=== PATIENT | male | born 1955 | race Caucasian/White ===

== ENCOUNTER → 2018-10-30 13:08 | Outpatient (CLI) | payer MEDICARE, BC, SELFPAY ==
[2018-10-30 13:49] LABS: Basophils % 0.2 % (0.1-2.0); Eosinophils # 0.1 K/mm3 (0.0-0.4); Eosinophils % 2.2 % (0.1-12.0); Hematocrit 45.5 % (42.0-52.0); Hemoglobin 15.4 g/dL (14.1-18.0); Lymphocytes # 1.5 K/mm3 (0.7-4.5); Lymphocytes % 26.4 % (10-50); Mean Corpuscular HGB Conc 33.7 g/dL (31.8-35.4); Mean Corpuscular Hemoglobin 29.2 pg (27.0-31.2); Mean Corpuscular Volume 86.5 fl (80-94); Mean Platelet Volume 8.6 fl (7.4-10.4); Monocytes # 0.6 K/mm3 (0.1-1.0); Monocytes % 9.5 % (1.7-9.3); Neutrophils # 3.6 K/mm3 (1.8-7.8); Neutrophils % 61.7 % (37.0-80.0); Platelet Count 173 K/mm3 (142-424); Red Blood Count 5.26 M/mm3 (4.60-6.20); Red Cell Distribution Width 15.5 % (11.5-17.5); White Blood Count 5.8 K/mm3 (4.8-10.8)
== END ==
PROVIDERS: Visit Provider Internal Medicine
DX: D75.1 Secondary polycythemia (principal)
CPT/HCPCS: 36415; 85025

== ENCOUNTER → 2018-11-27 13:50 | Outpatient (CLI) | payer MEDICARE, BC, SELFPAY ==
--- NOTE | 2018-11-27 13:56 | XR_ITS ---
XR hip RT 2-3V w/pelvis HISTORY: ITS.REASON: RT HIP PAIN ORDERING PHYSICIAN: Luz Martinez APRN PATIENT AGE: 63 years COMPARISON: None FINDINGS: No fracture or dislocation is evident. There are mild osteoarthritic changes of the right hip with slight decrease in the joint space, osteosclerosis of the acetabular roof, and small osteophyte formation of the acetabulum. IMPRESSION: Mild osteoarthritis of the right hip
== END ==
PROVIDERS: PCP Nurse Practitioner Family; Visit Provider Nurse Practitioner Family
DX: M25.551 Pain in right hip (principal)
CPT/HCPCS: 73502

== ENCOUNTER → 2019-04-01 15:35 | Outpatient (CLI) | payer MEDICARE, BC, SELFPAY ==
--- NOTE | 2019-04-01 15:41 | XR_ITS ---
PROCEDURE: XR CHEST 2V CLINICAL HISTORY: sob COMPARISON: CXR CHEST(2 VIEWS-NOT PORTABLE) from 09/01/2015 FINDINGS: The cardiomediastinal silhouette and pulmonary vascularity are within normal limits. The lungs are clear without infiltrates, suspicious nodules, or pleural effusions. No acute bony abnormalities. IMPRESSION: No acute findings. Dictated by: Brant William MD 04/01/2019 16:00 Electronically signed by Brant William MD in [place] 04/01/2019 16:00
[2019-04-01 16:43] LABS: Troponin I < 0.02 ng/ml (0.00-0.06)
[2019-04-01 16:44] LABS: Basophils % 0.4 % (0.1-2.0); Eosinophils # 0.1 K/mm3 (0.0-0.4); Eosinophils % 1.5 % (0.1-12.0); Hemoglobin 17.1 g/dL (14.1-18.0); Lymphocytes # 1.1 K/mm3 (0.7-4.5); Lymphocytes % 14.9 % (10-50); Mean Corpuscular HGB Conc 34.9 g/dL (31.8-35.4); Mean Corpuscular Hemoglobin 33.2 pg (27.0-31.2); Mean Platelet Volume 8.6 fl (7.4-10.4); Monocytes # 0.7 K/mm3 (0.1-1.0); Monocytes % 9.5 % (1.7-9.3); Neutrophils # 5.6 K/mm3 (1.8-7.8); Neutrophils % 73.7 % (37.0-80.0); Platelet Count 191 K/mm3 (142-424); Red Blood Count 5.16 M/mm3 (4.60-6.20); Red Cell Distribution Width 14.2 % (11.5-17.5); White Blood Count 7.6 K/mm3 (4.8-10.8)
[2019-04-01 16:50] LABS: Alanine Aminotransferase 27 U/L (12-78); Albumin Level 3.7 gm/dL (3.4-5.0); Alkaline Phosphatase 81 U/L (46-116); Anion Gap 12.9 mEq/L (5-15); Aspartate Amino Transferase 23 U/L (15-37); Bilirubin,Direct 0.1 mg/dL (0.0-0.2); Bilirubin,Indirect 0.6 mg/dL (0.0-0.9); Bilirubin,Total 0.7 mg/dL (0.2-1.0); Blood Urea Nitrogen 16 mg/dL (7-18); Calcium 9.4 mg/dL (8.5-10.1); Carbon Dioxide 27 mmol/L (21.0-32.0); Chloride 102 mmol/L (98-107); Creatinine,Serum 0.76 mg/dL (0.70-1.30); Estimated Glomerular Filt Rate 103 ml/min (>60); GFR (African American) 125 ML/MIN (>60); Glucose 104 mg/dL (74-106); Potassium 3.9 mmoL/L (3.5-5.1); Sodium 138 mmol/L (136-145); Thyroid Stimulating Hormone 3.42 uIU/ml (0.358-3.740); Total Protein,Serum 7.1 gm/dL (6.4-8.2)
== END ==
PROVIDERS: PCP Family Medicine; Visit Provider Nurse Practitioner Family
DX: I48.91 Unspecified atrial fibrillation (principal); R00.2 Palpitations; I11.9 Hypertensive heart disease without heart failure; R06.02 Shortness of breath; E78.5 Hyperlipidemia, unspecified; R07.9 Chest pain, unspecified
CPT/HCPCS: 36415; 71046; 80048; 80076; 84439; 84443; 84484; 85025; 93270

== ENCOUNTER → 2019-06-26 11:37 | Outpatient (CLI) | payer MEDICARE, BC, SELFPAY ==
[2019-06-26 12:21] LABS: Basophils % 0.4 % (0.1-2.0); Eosinophils # 0.1 K/mm3 (0.0-0.4); Eosinophils % 1.8 % (0.1-12.0); Hematocrit 49.8 % (42.0-52.0); Lymphocytes # 1.4 K/mm3 (0.7-4.5); Lymphocytes % 23.6 % (10-50); Mean Corpuscular HGB Conc 34.1 g/dL (31.8-35.4); Mean Corpuscular Hemoglobin 33.2 pg (27.0-31.2); Mean Corpuscular Volume 97.2 fl (80-94); Mean Platelet Volume 8.7 fl (7.4-10.4); Monocytes # 0.6 K/mm3 (0.1-1.0); Monocytes % 10.5 % (1.7-9.3); Neutrophils # 3.8 K/mm3 (1.8-7.8); Neutrophils % 63.7 % (37.0-80.0); Platelet Count 186 K/mm3 (142-424); Red Blood Count 5.12 M/mm3 (4.60-6.20); Red Cell Distribution Width 13.3 % (11.5-17.5)
[2019-06-26 12:46] LABS: Alanine Aminotransferase 30 U/L (12-78); Albumin Level 3.6 gm/dL (3.4-5.0); Alkaline Phosphatase 87 U/L (46-116); Anion Gap 12.8 mEq/L (5-15); Aspartate Amino Transferase 21 U/L (15-37); Bilirubin,Direct 0.1 mg/dL (0.0-0.2); Bilirubin,Indirect 0.7 mg/dL (0.0-0.9); Bilirubin,Total 0.8 mg/dL (0.2-1.0); Blood Urea Nitrogen 19 mg/dL (7-18); Calcium 9.6 mg/dL (8.5-10.1); Carbon Dioxide 31 mmol/L (21.0-32.0); Chloride 101 mmol/L (98-107); Chol/HDL Ratio 3.2 (1-3.5); Cholesterol 126 mg/dL (140-200); Creatinine,Serum 0.86 mg/dL (0.70-1.30); Estimated Glomerular Filt Rate 89 ml/min (>60); GFR (African American) 108 ML/MIN (>60); Glucose 103 mg/dL (74-106); HDL Cholesterol 40 mg/dL (27-67); LDL Cholesterol 62 mg/dL (0-130); Potassium 4.8 mmoL/L (3.5-5.1); Sodium 140 mmol/L (136-145); Total Protein,Serum 6.8 gm/dL (6.4-8.2); Triglycerides 121 mg/dL (30-200); VLDL Cholesterol 24 mg/dL (0-40)
== END ==
PROVIDERS: Visit Provider Physician Assistant
DX: E78.5 Hyperlipidemia, unspecified (principal); I11.9 Hypertensive heart disease without heart failure; I48.0 Paroxysmal atrial fibrillation
CPT/HCPCS: 36415; 80048; 80061; 80076; 85025

== ENCOUNTER → 2020-12-08 14:18 | Outpatient (CLI) | payer MEDICARE, BC, SELFPAY ==
--- NOTE | 2020-12-08 | XR_ITS ---
PROCEDURE: XR KNEE LT 3V CLINICAL INDICATION: PAIN IN LT KNEE COMPARISON: No exams were available for comparison FINDINGS: Severe tricompartmental osteoarthritic changes are present with decrease in joint space and osteophyte formation. Is some mild concave flattening of the medial tibial plateau and prominent osteophyte is present along the distal femur at the patellofemoral joint. There is lateral tibial subluxation 1 cm. No fracture or dislocation. No lytic or blastic change. IMPRESSION: Severe osteoarthritis involving all 3 compartments. There is concave deformity of the medial tibial plateau raising the suspicion of an old tibial plateau fracture. Dictated by: Brant William MD 12/08/2020 15:22 Brant William MD in [place] 12/08/2020 15:22
--- NOTE | 2020-12-08 | XR_ITS ---
PROCEDURE: XR KNEE RT 3V CLINICAL INDICATION: PAIN IN RT KNEE COMPARISON: No exams were available for comparison FINDINGS: There are mild tricompartmental osteoarthritic changes greatest at the medial compartment with slight decrease in the joint spaces and osteophyte formation. No fracture or dislocation. No lytic or blastic change. Other findings:There is minimal lateral subluxation of the tibia by approximately 4 mm. IMPRESSION: Mild osteoarthritis of the right knee Dictated by: Brant William MD 12/08/2020 15:17 Brant William MD in [place] 12/08/2020 15:17
--- NOTE | 2020-12-08 | XR_ITS ---
PROCEDURE: XR HIP RT 2-3V W/PELVIS CLINICAL INDICATION: RT HIP PAIN COMPARISON: No exams were available for comparison FINDINGS: There are severe osteoarthritic changes of the right hip with loss of joint space superiorly and osteosclerosis is well osteophyte formation. There is mild lateral subluxation of the femoral head and widening of the hip joint space. Osteophytes are present at the femoral head/neck junction and could be causing some femoral acetabular impingement. Subchondral cystic changes are present in the acetabulum and femoral head. No acute fracture or dislocation. There is very minimal flattening of the femoral head IMPRESSION: Severe osteoarthritis of the right hip as detailed above with subchondral cystic changes of the acetabulum and femoral head. Dictated by: Brant William MD 12/08/2020 15:16 Brant William MD in [place] 12/08/2020 15:16
== END ==
PROVIDERS: PCP Nurse Practitioner Family; Visit Provider Nurse Practitioner Family
DX: M25.562 Pain in left knee (principal); M25.561 Pain in right knee; M25.551 Pain in right hip
CPT/HCPCS: 73502; 73562

== ENCOUNTER → 2020-12-23 11:37 | Outpatient (CLI) | payer MEDICARE, BC, SELFPAY ==
--- NOTE | 2020-12-23 | CA_ITS ---
APPROVED REPORT Exam: Pharmacologic Technologist: gloria perez, Ht: 5 ft 8 in Wt: 221 lbs BSA: 2.13 m2 HR: 52 bpm BP: 125/66 mmHg Indications: SOA Medical History Medications: Lisinopril,,,,, Sotalol,,,,, Naproxen,,,,, Lipitor,,,,, Diclofenac,,,,, RIvaROXABAN,,,,, Allergies: NKA Cardiac Risk Factors: HTN, Hyperlipidemia Stress Test Details Test: LEXISCAN HR Resting HR: 55 bpm Max Heart Rate (APMHR): 153.574678 bpm Max HR Achieved: 72 bpm Target HR (85% APMHR): 130.331594 bpm % of APMHR: 47.06 Recovery HR: 65 bpm BP Resting BP: 125/66 mmHg Max BP: 130/76 mmHg Recovery BP: 112.0/68.0 mmHg ECG Resting ECG: Sinus rocael, 1AVB Clinical Exercise duration: 04:00 min Highest Stage Achieved: Exercise capacity: 1.0 METs Stress ECG Conclusion Mild chest tightness amd mild lightheaded. Rarre PVC. No significant ST changes. Unremarkable Lexiscan stress. Images reported separately. Electronically signed by : Maicol Monique, 12/24/2020 10:22:17
--- NOTE | 2020-12-23 11:38 | NM_ITS ---
APPROVED REPORT Exam: Nuclear Stress Test Indication: HTN, HYPERLIPIDEMIA, FM HX, SOB, PALPITATIONS, A -FIB Patient Location: Outpatient Stress Tech: Mari Neri ID Tech:DAVID Benitez RT (R)(N)(M) Ht: 5 ft 8 in Wt: 214 lbs HR: 52 bpm BP: 125/66 mmHg BSA: 2.10 m2 BMI: 32.5 History: HTN, HYPERLIPIDEMIA, FM HX, SOB, PALPITATIONS, A -FI Procedure: Patient received a 0.4 mg of intravenous Lexiscan, resting heart rate 52 bpm, resting blood pressure 125/66 mmHg, with Lexiscan maximum heart rate achived was 71 bpm which is Less than 85 % of the maximum predicted heart rate and blood pressure was 107/57 mmHg. With Lexiscan, patient denied any complaint of chest pain. Electrocardiogram Resting electrocardiogram shows sinus rhythm, with Lexiscan there is less than 1.[address] segment depression noted from the baseline EKG. The EKG portion of the Lexiscan is nondiagnostic. Cardiac Stress and Resting SPECT Images: Cardiac Stress and Resting SPECT images were obtained using technetium 99m Myoview 31.2 mCi stress and 10.04 mCi at rest. Gated SPECT for analysis of segmental wall motion and calculation of the ejection fraction also done. Prone images were also obtained. Cardiac stress and resting SPECT images show decreased tracer activity in the anterior apical and inferior apical wall which improves on the resting images raising the concerns for presence of reversible ischemia, computer derived ejection fraction is 62% with no regional wall motion abnormality, right ventricle is normal size and contractility. This study is technically limited due to patient's body habitus. Conclusion: 1. The EKG portion of the Lexiscan is nondiagnostic. 2. Scintigraphic evidence of reversible ischemia involving the anterior apical, and inferior apical wall raising the concerns for presence of multivessel coronary artery disease, this study is technically limited due to patient's body habitus, computer derived ejection fraction is 62% with no regional wall motion abnormality, right ventricle is normal size and contractility. 3. Abnormal Lexiscan Myoview study. Electronically signed by : Maicol Monique, 12/24/2020 10:34:23
--- NOTE | 2020-12-23 13:32 | CA_ITS ---
APPROVED REPORT EXAM: Comprehensive 2D, Doppler, and color-flow Echocardiogram Museum Archivist: Desi Fish CRT Ht: 5 ft 8 in Wt: 221lbs BSA: 2.13 BP: 132/68 mmHg Indications: Shortness of Breath, Atrial Fibrillation, Palpitations, Hyperlipidemia, Hypertension/HDD 2D Dimensions LVOT 2.05 cm (M/F) 1.5-2.5 LA Volume 69.90 mL LA Volume Index 32.80 mL/m2 (M/F) 16-34 M-Mode Dimensions RVDd 2.28 cm (0.9-2.6) LA Diam 4.32 cm (1.9-4.0) LVDd 4.06 cm (3.5-5.7) Ao Diam 4.20 cm (2.0-3.7) LVDs 2.70 cm (3.5-5.7) IVSd 2.39 cm (0.6-1.1) PWd 0.76 cm (0.6-1.1) EF (Teich) 62.80% FS 33.50% EDV (Teich) 72.50 mL TAPSE 2.47 (<1.7) ESV (Teich) 27.00 mL LV Diastology E Decel Time 180.00 (160-240 msec) E/A Ratio 0.80 MED E' 6.40 (< 7 cm/sec) MED A' 10.40 cm/s E'/MED E' Ratio 13.02 (>14) LAT E' 10.20 (<10 cm/sec) LAT A' 10.40 cm/s E/LAT E' Ratio 8.17 (>14) Aortic Valve AO Peak GR. 6.80 mmHg Mitral Valve MV A Velocity 104.00 (40-130 cm/s) E/A Ratio 0.80 MV Decel. Time 180.00 (160-240 ms) Pulmonary Valve PV Peak Velocity 92.00 (50-150 cm/s) Tricuspid Valve TR P. Velocity 209.00 cm/s RAP Estimate 10.00 mmHg RVSP 27.40 mmHg Left Ventricle Left atrium is mildly enlarged, left ventricle is normal size, mild concentric left ventricular hypertrophy, visually estimated ejection fraction 55% with no regional wall motion abnormality, grade 1 diastolic dysfunction seen without tissue Doppler evidence of raise left atrial pressure. Right Ventricle Right atrium and right ventricle are normal size and contractility. Aortic Valve Aortic valve is minimally thickened and fibrosed, there is no aortic stenosis or aortic insufficiency. Mitral Valve Mitral valve grossly normal, there is trace mitral regurgitation. Tricuspid Valve Tricuspid valve grossly normal, there is trace tricuspid regurgitation, tricuspid regurgitation jet velocity is inadequate for calculation of the right ventricular systolic pressure. Pulmonic Valve Pulmonic valve is poorly visualized. Great Vessels Aortic root is normal size. Pericardium No significant pericardial effusion noted. Conclusion 1. Mildly enlarged left atrium, normal left ventricular size, mild concentric left ventricular hypertrophy, visually estimated ejection fraction 55% with no regional wall motion abnormality, grade 1 diastolic dysfunction seen without tissue Doppler evidence of raise left atrial pressure. 2. Trace mitral and tricuspid regurgitation. 3. No significant pericardial effusion noted. Electronically signed by : Maicol Monique, 12/24/2020 15:28:48
[2020-12-23 16:02] LABS: Alanine Aminotransferase 19 U/L (12-78); Alkaline Phosphatase 84 U/L (38-126); Anion Gap 7.4 mEq/L (5-15); Aspartate Amino Transferase 25 U/L (17-59); Bilirubin,Direct 0.2 mg/dl (0.0-0.4); Bilirubin,Indirect 0.6 mg/dL (0.0-0.9); Bilirubin,Total 0.8 mg/dl (0.2-1.3); Bilirubin,Unconjugated 0.5 mg/dL (0.0-1.1); Blood Urea Nitrogen 16 mg/dl (9-20); Calcium 9.4 mg/dl (8.4-10.2); Carbon Dioxide 33 mmol/L (22.0-30.0); Chloride 104 mmol/L (98-107); Chol/HDL Ratio 3.9 (1-3.5); Cholesterol 121 mg/dl (140-200); Estimated Glomerular Filt Rate 134 ml/min (>60); GFR (African American) 163 ML/MIN (>60); Glucose 93 mg/dl (74-100); HDL Cholesterol 31 mg/dl (40-60); Potassium 4.4 mmoL/L (3.5-5.1); Sodium 140 mmol/L (136-145); Total Protein,Serum 6.4 g/dl (6.3-8.2); Triglycerides 129 mg/dl (30-150); VLDL Cholesterol 26 mg/dL (0-40)
[2020-12-23 16:13] LABS: Direct LDL Cholesterol 63.23 mg/dL (100-129)
[2020-12-23 16:18] LABS: Free T4 (Free Thyroxine) 0.97 ng/dl (0.78-2.19)
[2020-12-23 16:33] LABS: Thyroid Stimulating Hormone 3.06 uIU/mL (0.465-4.68)
[2020-12-23 20:58] LABS: Basophils % 0.5 % (0.1-2.0); Eosinophils # 0.2 K/mm3 (0.0-0.4); Eosinophils % 2.4 % (0.1-12.0); Hematocrit 46.6 % (42.0-52.0); Hemoglobin 15.4 g/dL (14.1-18.0); Lymphocytes # 1.6 K/mm3 (0.7-4.5); Lymphocytes % 22.2 % (10-50); Mean Corpuscular HGB Conc 33.2 g/dL (31.8-35.4); Mean Corpuscular Hemoglobin 31.7 pg (27.0-31.2); Mean Corpuscular Volume 95.7 fl (80-94); Mean Platelet Volume 9.8 fl (7.4-10.4); Monocytes # 0.6 K/mm3 (0.1-1.0); Monocytes % 8.3 % (1.7-9.3); Neutrophils # 4.7 K/mm3 (1.8-7.8); Neutrophils % 66.6 % (37.0-80.0); Platelet Count 193 K/mm3 (142-424); Red Blood Count 4.87 M/mm3 (4.60-6.20); Red Cell Distribution Width 13.3 % (11.5-17.5); White Blood Count 7.1 K/mm3 (4.8-10.8)
== END ==
PROVIDERS: PCP Nurse Practitioner Family; Visit Provider Physician Assistant
DX: D75.1 Secondary polycythemia (principal); E78.2 Mixed hyperlipidemia; I11.9 Hypertensive heart disease without heart failure; I48.0 Paroxysmal atrial fibrillation; R00.2 Palpitations; R06.02 Shortness of breath
CPT/HCPCS: 36415; 78452; 80048; 80061; 80076; 84439; 84443; 85025; 93017; 93306; A9502; J2785

== ENCOUNTER → 2020-12-23 14:58 | Outpatient (CLI) | payer MEDICARE, BC, SELFPAY | PROVIDERS: Visit Provider Physician Assistant | DX: R06.02 Shortness of breath (principal) ==

== ENCOUNTER → 2020-12-31 14:14 | Outpatient (CLI) | payer MEDICARE, BC, SELFPAY | PROVIDERS: Visit Provider Physician Assistant | DX: D75.1 Secondary polycythemia (principal); E78.2 Mixed hyperlipidemia; I11.9 Hypertensive heart disease without heart failure; I48.0 Paroxysmal atrial fibrillation; R06.02 Shortness of breath; R94.30 Abnormal result of cardiovascular function study, unspecified; Z01.812 Encounter for preprocedural laboratory examination; Z20.822 Contact with and (suspected) exposure to COVID-19 | CPT/HCPCS: U0003 ==

== ENCOUNTER 2021-01-01 11:31 | Day surgery (SDC) | payer MEDICARE, BC, SELFPAY ==
[2021-01-01] VITALS (8 sets, daily range): BP systolic 104–119; BP diastolic 54–70; PULSE 47–54; RESP 13–20; O2SAT 95–99; BMI 32.6
--- NOTE | 2021-01-01 | IR_ITS ---
APPROVED REPORT Patient Location: Outpatient PROCEDURES Left heart catheterization Left ventriculogram Selective coronary angiogram INDICATION Abnormal Myoview, Angina pectoris Informed consent was obtained prior to the procedure. COMPLICATIONS None Estimated Blood Loss: Less than 10 mls TECHNIQUE One percent lidocaine used to anesthetize the right anterior aspect of the wrist. The right radial artery was accessed via the Seldinger technique. A 6 Czech sheath was placed in the right radial artery. 2.5 mg of verapamil, 800 mcg of nitroglycerin, 1mg Lidocaine and 5000 U Heparin were given through the arterial sheath. The trap catheter was also used to perform left heart catheterization, left ventriculogram and selective coronary angiogram. At the end of the procedure the sheath was removed good hemostasis was achieved using Traclet band, patient was transferred to the postop holding area in stable condition. ANGIOGRAPHIC RESULTS The left main artery Normal The left anterior descending artery Has extraluminal calcification seen on fluoroscopy however there is no intraluminal encroachment of either calcium or atherosclerotic disease The circumflex artery Dominant normal The right coronary artery Vestigial normal The THOMAS ventriculogram reveals Normal 65% The left ventricular end-diastolic pressure 10 mmHg IMPRESSION Extravascular calcification as described above which is seen on fluoroscopy No evidence of intraluminal atherosclerosis or calcification with essentially normal intraluminal angiography Normal ejection fraction Normal left ventricular end-diastolic pressure PLAN 1. Medical management evaluation of noncardiac symptoms Electronically signed by : Ezekiel Forrest, 01/01/2021 13:12:58
== END 2021-01-01 15:30 | disposition home or self-care (01) ==
LOC: CATHLAB 11:34
PROVIDERS: PCP Nurse Practitioner Family; Visit Provider Internal Medicine
DX: I25.118 Atherosclerotic heart disease of native coronary artery with other forms of angina pectoris (principal); R94.39 Abnormal result of other cardiovascular function study; R06.02 Shortness of breath; I48.0 Paroxysmal atrial fibrillation; I11.9 Hypertensive heart disease without heart failure; E78.2 Mixed hyperlipidemia; Z79.899 Other long term (current) drug therapy; D75.1 Secondary polycythemia; Z79.01 Long term (current) use of anticoagulants
CPT/HCPCS: 93458; 99152; C1725; C1769; J1644; Q9967

== ENCOUNTER → 2021-01-26 13:02 | Outpatient (CLI) | payer MEDICARE, BC, SELFPAY ==
--- NOTE | 2021-01-26 13:09 | XR_ITS ---
PROCEDURE: XR KNEE LT 4V CLINICAL INDICATION: left knee pain; weightbearing COMPARISON: CR XR KNEE LT 3V from 12/08/2020 CR XR KNEE RT 3V from 12/08/2020 FINDINGS: No fracture or dislocation. No lytic or blastic change. There is normal mineralization. Severe osteoarthritic changes are present involving all 3 compartments. These are upright images in the loss of joint space is greater compared to 12/08/2020. There is also moderate lateral subluxation of the proximal tibia approximately 15 mm. Small suprapatellar effusion is suspected. Calcification is noted along the anterior and distal aspect of the thigh within the soft tissues measuring approximately 7 x 4 mm. This probably represents a small loose body within the suprapatellar recess. Previously this was more distal at the diaphyseal metaphyseal junction Other findings:None. IMPRESSION: Severe osteoarthritis of the left knee as described above with suspected loose body in the suprapatellar recess Dictated by: Brant William MD 01/26/2021 13:51 Brant William MD in [place] 01/26/2021 13:51
--- NOTE | 2021-01-26 13:09 | XR_ITS ---
PROCEDURE: XR HIP LT 2-3V W/PELVIS CLINICAL INDICATION: left hip pain COMPARISON: CR XR HIP RT 2-3V W/PELVIS from 12/08/2020 FINDINGS: AP view of the pelvis shows severe osteoarthritic change of the right with osteosclerosis of the femoral head and acetabulum with some subchondral cystic changes of the femoral head. The left hip has an unremarkable appearance. No fracture or dislocation. No lytic or blastic change. IMPRESSION: Negative left hip. Severe osteoarthritis of the right hip as before Dictated by: Brant William MD 01/26/2021 13:52 Brant William MD in [place] 01/26/2021 13:52
--- NOTE | 2021-01-26 13:09 | XR_ITS ---
PROCEDURE: XR KNEE RT 4V CLINICAL INDICATION: right knee pain; weightbearing COMPARISON: CR XR KNEE LT 3V from 12/08/2020 CR XR KNEE RT 3V from 12/08/2020 FINDINGS: No fracture or dislocation. No lytic or blastic change. There is normal mineralization. There are mild osteoarthritic changes of the medial compartment and patellofemoral joint. There is mild tibial subluxation laterally on the upright view by approximately 8 mm. Other findings:None. IMPRESSION: Osteoarthritis Dictated by: Brant William MD 01/26/2021 13:43 Brant William MD in [place] 01/26/2021 13:43
== END ==
PROVIDERS: PCP Nurse Practitioner Family; Visit Provider Orthopaedic Surgery
DX: M25.552 Pain in left hip (principal); M25.562 Pain in left knee; M25.561 Pain in right knee
CPT/HCPCS: 73502; 73564

== ENCOUNTER → 2022-05-24 12:46 | Outpatient (CLI) | payer MEDICARE, BC, SELFPAY ==
--- NOTE | 2022-05-24 12:58 | XR_ITS ---
FINAL REPORT CLINICAL HISTORY: chronic Rt hip pain COMPARISON: 12/08/2020 FINDINGS: RIGHT HIP Two views of the right hip demonstrate no acute fracture or dislocation. Severe degenerative changes in the right hip has significantly progressed. There is superolateral subluxation of the femur which is worse. There are subchondral cysts in the superior femoral head and superior acetabulum. There are presumed loose bodies in the right hip joint, worse. IMPRESSION: Severe degenerative change in the right hip has significantly progressed. Superolateral subluxation of the femur, worse. Presumed loose bodies in the right hip joint, worse. Reviewed, Interpreted and Dictated by Avi Foster III, MD Transcribed by Richelle Hendricks Authenticated and . [facility]
== END ==
PROVIDERS: PCP Nurse Practitioner Family; Visit Provider Orthopaedic Surgery
DX: M25.551 Pain in right hip (principal)
CPT/HCPCS: 73502

== ENCOUNTER → 2022-12-20 07:40 | Outpatient (CLI) | payer MEDICARE, BC, SELFPAY ==
[2022-12-20 08:34] LABS: Basophils % 0.7 % (0.1-2.0); Eosinophils # 0.2 K/mm3 (0.0-0.4); Eosinophils % 2.9 % (0.1-12.0); Lymphocytes # 1.5 K/mm3 (0.7-4.5); Lymphocytes % 23.6 % (10-50); Mean Corpuscular HGB Conc 33.2 g/dL (31.8-35.4); Mean Corpuscular Hemoglobin 30.5 pg (27.0-31.2); Mean Corpuscular Volume 91.8 fl (80-94); Mean Platelet Volume 9.1 fl (7.4-10.4); Monocytes # 0.6 K/mm3 (0.1-1.0); Monocytes % 9.3 % (1.7-9.3); Neutrophils % 63.5 % (37.0-80.0); Platelet Count 192 K/mm3 (142-424); Red Blood Count 4.58 M/mm3 (4.60-6.20); Red Cell Distribution Width 15.4 % (11.5-17.5); White Blood Count 6.3 K/mm3 (4.8-10.8)
[2022-12-20 08:44] LABS: Alanine Aminotransferase 29 U/L (12-78); Albumin Level 3.8 g/dl (3.5-5.0); Alkaline Phosphatase 105 U/L (38-126); Anion Gap 13.9 mEq/L (5-15); Aspartate Amino Transferase 37 U/L (17-59); Bilirubin,Indirect 0.4 mg/dL (0.0-0.9); Bilirubin,Total 0.4 mg/dl (0.2-1.3); Bilirubin,Unconjugated 0.6 mg/dL (0.0-1.1); Blood Urea Nitrogen 22 mg/dl (9-20); Calcium 8.9 mg/dl (8.4-10.2); Carbon Dioxide 27 mmol/L (22.0-30.0); Chloride 102 mmol/L (98-107); Chol/HDL Ratio 3.2 (1-3.5); Cholesterol 107 mg/dl (140-200); Estimated Glomerular Filt Rate 134 ml/min (>60); GFR (African American) 162 ML/MIN (>60); Glucose 105 mg/dl (74-100); HDL Cholesterol 33 mg/dl (40-60); Potassium 3.9 mmoL/L (3.5-5.1); Sodium 139 mmol/L (136-145); Total Protein,Serum 5.9 g/dl (6.3-8.2); Triglycerides 125 mg/dl (30-150); VLDL Cholesterol 25 mg/dL (0-40)
[2022-12-20 08:55] LABS: Direct LDL Cholesterol 57.38 mg/dL (100-129)
[2022-12-20 09:00] LABS: Free T4 (Free Thyroxine) 0.76 ng/dl (0.78-2.19)
[2022-12-20 09:14] LABS: Thyroid Stimulating Hormone 3.26 uIU/mL (0.465-4.68)
== END ==
PROVIDERS: PCP Nurse Practitioner Family; Visit Provider Physician Assistant
DX: E78.2 Mixed hyperlipidemia (principal); I11.9 Hypertensive heart disease without heart failure; I48.0 Paroxysmal atrial fibrillation; R06.00 Dyspnea, unspecified; I63.9 Cerebral infarction, unspecified; E11.9 Type 2 diabetes mellitus without complications
CPT/HCPCS: 80048; 80061; 80076; 84439; 84443; 85025

== ENCOUNTER 2024-01-22 13:07 | Outpatient (CLI) | payer MEDICARE, BC, SELFPAY ==
[2024-01-22 13:10] LABS: Basophils % 0.4 % (0.1-2.0); Eosinophils # 0.2 K/mm3 (0.0-0.4); Eosinophils % 3.1 % (0.1-12.0); Hematocrit 44.7 % (42.0-52.0); Hemoglobin 15.3 g/dL (14.1-18.0); Lymphocytes # 1.2 K/mm3 (0.7-4.5); Lymphocytes % 16.3 % (10-50); Mean Corpuscular HGB Conc 34.2 g/dL (31.8-35.4); Mean Corpuscular Volume 99.2 fl (80-94); Monocytes # 0.5 K/mm3 (0.1-1.0); Monocytes % 7.1 % (1.7-9.3); Neutrophils # 5.3 K/mm3 (1.8-7.8); Neutrophils % 73.1 % (37.0-80.0); Platelet Count 197 K/mm3 (142-424); Red Cell Distribution Width 14.3 % (11.5-17.5); White Blood Count 7.2 K/mm3 (4.8-10.8)
[2024-01-25 17:18] LABS: Lyme B. burgdorferi PCR Blood Negative (Negative)
== END 2024-01-22 23:59 | disposition home or self-care (01) ==
LOC: LAB.DROPOF 13:07
PROVIDERS: PCP Nurse Practitioner Family; Visit Provider Nurse Practitioner Family
DX: I48.0 Paroxysmal atrial fibrillation (principal); S30.860A Insect bite (nonvenomous) of lower back and pelvis, initial encounter; E78.2 Mixed hyperlipidemia
CPT/HCPCS: 85025; 87476

== ENCOUNTER 2024-04-23 13:42 | Outpatient (CLI) | payer MEDICARE, BC, SELFPAY ==
[2024-04-26 13:11] LABS: Lyme B. burgdorferi PCR Blood Negative (Negative)
== END 2024-04-23 23:59 | disposition home or self-care (01) ==
LOC: LAB.DROPOF 04-24 10:17
PROVIDERS: PCP Nurse Practitioner Family; Visit Provider Nurse Practitioner Family
DX: S30.860A Insect bite (nonvenomous) of lower back and pelvis, initial encounter (principal); L30.9 Dermatitis, unspecified; I48.0 Paroxysmal atrial fibrillation; W57.XXXA Bitten or stung by nonvenomous insect and other nonvenomous arthropods, initial encounter
CPT/HCPCS: 87476

== ENCOUNTER 2024-11-13 14:08 | Outpatient (CLI) | payer MEDICARE, BC, SELFPAY ==
[2024-11-13 14:42] LABS: Basophils % 0.4 % (0.1-2.0); Eosinophils # 0.2 Kmm3 (0.0-0.4); Eosinophils % 2.7 % (0.1-12.0); Hemoglobin 14.3 g/dL (14.1-18.0); Lymphocytes # 1.2 K/mm3 (0.7-4.5); Lymphocytes % 22.2 % (10-50); Mean Corpuscular HGB Conc 34.9 g/dL (31.8-35.4); Mean Corpuscular Hemoglobin 32.8 pg (27.0-31.2); Mean Platelet Volume 10.9 fl (7.4-10.4); Monocytes # 0.6 K/mm3 (0.1-1.0); Monocytes % 11.2 % (1.7-9.3); Neutrophils # 3.5 K/mm3 (1.8-7.8); Neutrophils % 63.3 % (37.0-80.0); Nucleated Red Blood Cells # 0 10^3/uL; Nucleated Red Blood Cells % 0 %; Platelet Count 200 K/mm3 (142-424); Red Blood Count 4.36 M/mm3 (4.60-6.20); Red Cell Distribution Width 13.2 % (11.5-17.5); Red Cell Distribution Width-SD 45.7 fL; White Blood Count 5.5 K/mm3 (4.8-10.8)
[2024-11-13 15:14] LABS: Albumin Level 3.8 g/dl (3.5-5.0); Chloride 106 mmol/L (98-107); Sodium 139 mmol/L (136-145)
[2024-11-13 15:16] LABS: Bilirubin,Unconjugated 0.6 mg/dL (0.0-1.1); Blood Urea Nitrogen 21 mg/dl (9-20); Carbon Dioxide 28 mmol/L (22.0-30.0); Estimated Glomerular Filt Rate 111 ml/min (>60); GFR (African American) 135 ML/MIN (>60)
[2024-11-13 15:17] LABS: Alanine Aminotransferase 27 U/L (12-78); Alkaline Phosphatase 86 U/L (38-126); Aspartate Amino Transferase 33 U/L (17-59); Bilirubin,Direct 0.1 mg/dl (0.0-0.4); Bilirubin,Indirect 0.5 mg/dL (0.0-0.9); Bilirubin,Total 0.6 mg/dl (0.2-1.3); Calcium 9.2 mg/dl (8.4-10.2); Chol/HDL Ratio 3.6 (1-3.5); Cholesterol 113 mg/dl (140-200); Glucose 91 mg/dl (74-100); HDL Cholesterol 31 mg/dl (40-60); Total Protein,Serum 6.1 g/dl (6.3-8.2); Triglycerides 132 mg/dl (30-150); VLDL Cholesterol 26 mg/dL (0-40)
[2024-11-13 15:28] LABS: Direct LDL Cholesterol 57.48 mg/dL (100-129)
[2024-11-13 15:32] LABS: Free T4 (Free Thyroxine) 0.86 ng/dl (0.78-2.19)
[2024-11-13 16:00] LABS: Thyroid Stimulating Hormone < 0.02 uIU/mL (0.465-4.68)
== END 2024-11-13 23:59 | disposition home or self-care (01) ==
LOC: LAB 14:09
PROVIDERS: PCP Nurse Practitioner Family; Visit Provider Nurse Practitioner Family
DX: E78.5 Hyperlipidemia, unspecified (principal); R06.02 Shortness of breath; I48.0 Paroxysmal atrial fibrillation; I11.9 Hypertensive heart disease without heart failure
CPT/HCPCS: 36415; 80048; 80061; 80076; 84439; 84443; 85025

== ENCOUNTER 2025-04-01 14:50 | Outpatient (CLI) | payer MEDICARE, BC, SELFPAY ==
[2025-04-01 18:35] LABS: Albumin Level 3.9 g/dl (3.5-5.0); Chloride 101 mmol/L (98-107); Sodium 138 mmol/L (136-145)
[2025-04-01 18:36] LABS: Potassium 4.3 mmoL/L (3.5-5.1)
[2025-04-01 18:38] LABS: Alanine Aminotransferase 26 U/L (12-78); Albumin/Globulin Ratio 1.7 (1.1-1.8); Anion Gap 14.3 mEq/L (5-15); Aspartate Amino Transferase 33 U/L (17-59); Blood Urea Nitrogen 21 mg/dl (9-20); Carbon Dioxide 27 mmol/L (22.0-30.0); Creatinine,Serum 0.60 mg/dl (0.66-1.25); Estimated Glomerular Filt Rate 133 ml/min (>60); GFR (African American) 161 ML/MIN (>60); Globulin 2.3 g/dL (1.3-3.2); Total Protein,Serum 6.2 g/dl (6.3-8.2)
[2025-04-01 18:39] LABS: Alkaline Phosphatase 81 U/L (38-126); Bilirubin,Total 0.9 mg/dl (0.2-1.3); Calcium 9.7 mg/dl (8.4-10.2); Glucose 91 mg/dl (74-100); Magnesium 1.8 mg/dl (1.6-2.3)
[2025-04-01 18:54] LABS: T4 (Thyroxine) 5.8 ug/dl (5.53-11.0)
[2025-04-01 18:55] LABS: Free T4 (Free Thyroxine) 0.97 ng/dl (0.78-2.19)
[2025-04-01 19:08] LABS: Thyroid Stimulating Hormone < 0.02 uIU/mL (0.465-4.68)
[2025-04-03 12:15] LABS: Triiodothyronine (T3) Free 2.8 pg/mL (2.0-4.4)
== END 2025-04-01 23:59 | disposition home or self-care (01) ==
LOC: LAB.DROPOF 04-02 09:30
PROVIDERS: PCP Nurse Practitioner Family; Visit Provider Nurse Practitioner Family
DX: I48.0 Paroxysmal atrial fibrillation (principal); R79.89 Other specified abnormal findings of blood chemistry; M62.838 Other muscle spasm; T14.8XXA Other injury of unspecified body region, initial encounter
CPT/HCPCS: 80053; 82180; 83735; 84436; 84439; 84443; 84481

== ENCOUNTER 2025-05-05 14:23 | Outpatient (CLI) | payer MEDICARE, SELFPAY ==
[2025-05-10 09:12] LABS: Lyme B. burgdorferi PCR Blood Negative (Negative)
== END 2025-05-05 23:59 | disposition home or self-care (01) ==
LOC: LAB.DROPOF 05-06 14:23
PROVIDERS: PCP Nurse Practitioner Family; Visit Provider Nurse Practitioner Family
DX: Z12.5 Encounter for screening for malignant neoplasm of prostate (principal); S30.860A Insect bite (nonvenomous) of lower back and pelvis, initial encounter; W57.XXXA Bitten or stung by nonvenomous insect and other nonvenomous arthropods, initial encounter
CPT/HCPCS: 87476; G0103